=== PATIENT | female | born 1950 | race Caucasian/White ===

== ENCOUNTER 2019-01-19 13:02 | Emergency (ER) | payer MEDICARE, MEDICAID ==
[~2019-01-19] VITALS: Ht 167.6 cm; Wt 68.0 kg
[2019-01-19 13:56] LABS: BASOPHILS % (AUTO) 0.3 % (0-1); EOSINOPHILS # (AUTO) 0.1 X10'3 (0-0.9); EOSINOPHILS % (AUTO) 0.6 % (0-6); HEMATOCRIT 26.4 % (35.0-45.0); HEMOGLOBIN 8.4 g/dl (12.0-16.0); LYMPHOCYTES # (AUTO) 1.8 X10'3 (1.1-4.8); LYMPHOCYTES % (AUTO) 11.3 % (21-51); MEAN CORPUSCULAR HEMOGLOBIN 22.2 PG (27.0-31.0); MEAN CORPUSCULAR HGB CONC 31.9 g/dL (33.0-36.5); MEAN CORPUSCULAR VOLUME 69.4 FL (78-98); MEAN PLATELET VOLUME 9.2 FL (7.4-10.4); MONOCYTES % (AUTO) 12.4 % (2-12); NEUTROPHILS % (AUTO) 75.4 % (42-75); PLATELET COUNT 229 X10'3 (140-440); RED CELL DISTRIBUTION WIDTH 18.8 % (11.5-14.5); WHITE BLOOD COUNT 15.9 X10'3 (4.5-11.0)
[2019-01-19 14:07] LABS: MAGNESIUM 1.9 MG/DL (1.5-2.4)
[2019-01-19] MEDS ORDERED: CefTRIAXone 1000mg IM Kit (w/lidocaine diluent) IM ONE (14:30)
[2019-01-19] MEDS ORDERED: CEPH-572 PO (14:43)
[2019-01-19] MEDS ORDERED: FURO-150 PO (14:43)
[2019-01-19 14:54] LABS: ANISOCYTOSIS 2+; MICROCYTOSIS 2+; PLATELET ESTIMATE NORMAL; TOTAL CELLS COUNTED 100
--- NOTE | 2019-01-19 14:55 | NUR ---
pt spilled urine, unable to obtain urine at this time
[2019-01-19 14:56] LABS: POLYCHROMASIA FEW; SCHISTOCYTES FEW
--- NOTE | 2019-01-19 15:35 | NUR ---
Called [facility] for pt. 20-25 min ETA.
[2019-01-19 15:46] VITALS: BP 138/62
== END 2019-01-19 15:47 | disposition home or self-care (01) ==
LOC: ER 13:03
DX: L03.115 Cellulitis of right lower limb (principal); L03.116 Cellulitis of left lower limb; I50.9 Heart failure, unspecified; J44.9 Chronic obstructive pulmonary disease, unspecified; E03.9 Hypothyroidism, unspecified; Z79.899 Other long term (current) drug therapy; Z87.891 Personal history of nicotine dependence; Z59.0 Homelessness
CPT/HCPCS: 36415; 71045; 83735; 83880; 84484; 85025; 96372; 99284; J0696